=== PATIENT | male | born 1980 | race American Indian/Alaskan Native ===

== ENCOUNTER 2017-10-14 13:21 | Emergency (ER) | payer OTHER ==
[2017-10-14 14:23] VITALS: BP 113/86
--- NOTE | 2017-10-14 18:45 | Emergency Department Report ---
Chief Complaint: Urogenital-Male Stated Complaint: STD CHECK Time Seen by Provider: 10/14/17 18:44 - HPI History of Present Illness: Pt is a 37 yo male here for what he thinks may be soreness of his penile shaft for 2 days. pt states that he had unprotected sex with 2 women prior and is now scared that he may have an infection. Pt denied any penile lesions, rash, penile discharge, penile tip pain, testicular pain, or testicular swelling. Pt states he may have engaged in rough sex but denied any toys or trauma. Pt states he had been looking at the Web for his symptoms. - ROS Review of Systems: ROS: other systems reviewed and neg except as noted per HPI - Exam Vital Signs: Vital Signs 10/14/17 14:21 Temperature 98.1 F Pulse Rate 67 Respiratory 16 Rate Blood Pressure 113/86 O2 Sat by Pulse 98 Oximetry ROS: other systems reviewed and neg except as noted per HPI PE: General: awake, alert, in no acute distress; vital signs noted Physical Exam: PE: General: awake, alert, in no acute distress; vital signs noted Abd: soft, +Bs Nd; : penile shaft with no lesions; normal penis; no penile discharge; no testicular swelling, lesions; no deformity Ext: no edema; dp pulses 2+ neuro: awake, alert appropriate; moves all ext symmetrically; MSE screening note: Focused history and physical exam performed. Due to findings the following was ordered: discharge with follow up ED Disposition for MSE Condition: Stable Referrals: PRIMARY CARE, [Primary Care Provider] - 3-5 Days
== END 2017-10-14 19:27 | disposition home or self-care (01) ==
LOC: ED 13:21
DX: Z53.21 Procedure and treatment not carried out due to patient leaving prior to being seen by health care provider (principal)